=== PATIENT | male | born 2000 | race Two or more races ===

== ENCOUNTER 2024-07-07 23:10 | Emergency (ER) | payer SELFPAY ==
[~2024-07-07] VITALS: Ht 177.8 cm; Wt 75.0 kg
[2024-07-08] MEDS: SODIUM CHLORIDE 0.9% 1,000 ML IV ONE (00:07)
[2024-07-08 02:00] VITALS: BP 129/76; PULSE 79; RESP 18; TEMP 98.3; O2SAT 99
== END 2024-07-08 03:36 | disposition home or self-care (01) ==
LOC: EMS 23:10
DX: F10.129 Alcohol abuse with intoxication, unspecified (principal)
CPT/HCPCS: 99283; 96360; J7030